=== PATIENT | female | born 1955 | race Caucasian/White ===

== ENCOUNTER → 2021-02-09 11:16 | Outpatient (CLI) | payer MEDICARE, SELFPAY ==
[2021-02-09] MEDS: COVID-19 VACC #1, MRNA(MOD) 100 MCG/0.5 ML VIAL IM (11:27)
== END ==
PROVIDERS: Visit Provider Internal Medicine
DX: Z23 Encounter for immunization (principal)
CPT/HCPCS: 0011A; 91301

== ENCOUNTER → 2021-03-09 10:54 | Outpatient (CLI) | payer MEDICARE, SELFPAY ==
[2021-03-09] MEDS: COVID-19 VACC #2, MRNA(MOD) 100 MCG/0.5 ML VIAL IM (11:07)
== END ==
PROVIDERS: Visit Provider Internal Medicine
DX: Z23 Encounter for immunization (principal)
CPT/HCPCS: 0012A; 91301